=== PATIENT | male | born 1990 | race Caucasian/White ===

== ENCOUNTER 2017-04-20 00:28 | Emergency (ER) | payer MEDICAID ==
[~2017-04-20] VITALS: Ht 172.7 cm; Wt 68.2 kg
[2017-04-20] MEDS ORDERED: DEXAMETHASONE SOD PHOS 4 MG/ML 5 ML VIAL IM ONE (01:15)
[2017-04-20 02:01] VITALS: BP 128/83
== END 2017-04-20 02:05 | disposition home or self-care (01) ==
LOC: EMS 00:32
DX: J02.9 Acute pharyngitis, unspecified (principal); J45.909 Unspecified asthma, uncomplicated
CPT/HCPCS: 99281; J1100